=== PATIENT | female | born 1940 | race Caucasian/White ===

== ENCOUNTER 2018-01-05 22:07 | Emergency (ER) | payer MEDICARE, OTHER ==
[2018-01-05] MEDS ORDERED: NS 0.9% 1000 ML* 1,000 ML IV ONE (22:38)
[2018-01-05] MEDS ORDERED: LORazepam INJ* 2 MG/ML 1 ML VIAL IV PUSH ONE (22:57)
[2018-01-05 23:08] LABS: ABS Basophils 0 10^3/ul (0-0.2); ABS Eosinophils 0.3 10^3/ul (0-0.6); ABS Lymphocytes 2.3 10^3/ul (1.0-4.8); ABS Monocytes 0.7 10^3/ul (0-0.8); ABS Neutrophils 3.4 10^3/ul (1.5-7.7); ABS Nucleated RBC 0 10^3/ul; Eosinophil % 3.7 % (0-6); Hematocrit 36 % (35-47); Hemoglobin 11.7 g/dl (12.0-16.0); Lymphocyte % 34.8 % (25-47); Mean Corpuscular HGB Conc 32 g/dl (31-36); Mean Corpuscular Hemoglobin 29 pg (27-31); Mean Corpuscular Volume 89 fL (80-97); Mean Platelet Volume 8.2 um3 (7.4-10.4); Nucleated Red Blood Cells % 0; Platelet Count 303 10^3/ul (150-450); Red Blood Count 4.05 10^6/ul (4.0-5.4); Red Cell Distribution Width 15 % (10.5-15); White Blood Count 6.7 10^3/ul (3.5-10.8)
[2018-01-05 23:19] LABS: EGFR Non-African American 59.6 (>60)
[2018-01-06 01:47] VITALS: BP 167/83
--- NOTE | 2018-01-06 07:39 | RAD ---
INDICATION: Chest pain COMPARISON: None TECHNIQUE: An AP portable view obtained at 2254 hours is submitted. FINDINGS: Bones/Soft Tissues: There are no acute bony findings. Cardiomediastinal: The cardiomediastinal there is mild right paratracheal prominence which is likely related to the thyroid gland. Lungs: There are no infiltrates. Pleura: There are no pleural effusions. Other: None IMPRESSION: NO ACTIVE CARDIOPULMONARY DISEASE.
--- NOTE | 2018-01-06 19:36 | ED ---
Ajay Ray Rebecca, scribed for Roopa Flynn MD on 01/05/18 at 2257 . Complex/Multi-Sys Presentation - HPI Summary HPI Summary: Pt is a 77 y/o F who presents to ED c/o mouth tremors. Sx have been present for 2 days, present only at night. Denies any other symptoms including CP and SOB. Pt reports that she has been taking Xanax for multiple years and suddenly stopped it last week as she ran out and recently moved, so she has been unable to refill the Rx. Last EKG was about 2 years ago. Takes Gabapentin and Effexor. - History Of Current Complaint Chief Complaint: EDGeneral Time Seen by Provider: 01/05/18 22:37 Hx Obtained From: Patient Onset/Duration: Lasting Days - 2 days, Still Present Timing: Intermittent, Lasting: - Only at night Severity Currently: Mild - 11/05 Location: Pain At: - Neck - chronic Associated Signs And Symptoms: Positive: Other - Mouth tremors - Allergies/Home Medications Allergies/Adverse Reactions: Allergies Allergy/AdvReac Type Severity Reaction Status Date / Time iodine Allergy Hives Verified 01/05/18 22:13 Home Medications: Home Medications ALPRAZolam TAB* [Xanax TAB*] 0.5 mg PO BEDTIME PRN 01/05/18 [History Confirmed 01/05/18] Bacillus Coagulans [Ra Probiotic Gummies] 2 chw PO DAILY 01/05/18 [History Confirmed 01/05/18] Biotin 500 mg PO DAILY 01/05/18 [History Confirmed 01/05/18] Gabapentin CAP(*) [Neurontin 400 mg CAP(*)] 400 mg PO QID 01/05/18 [History Confirmed 01/05/18] HYDROcodone/ACETAMIN 5-325 MG* [[place] 5-325 TAB*] 1 tab PO Q4H PRN 01/05/18 [ History Confirmed 01/05/18] Magnesium Oxide [Magnesium] 500 mg PO DAILY 01/05/18 [History Confirmed 01/05/18 ] Multivit-Min/Iron/Folic/Lutein [Centrum Silver Women Tablet] 1 each PO DAILY 06/15 [History Confirmed 01/05/18] Venlafaxine TAB (NF) [Effexor TAB (NF)] 150 mg PO DAILY 01/05/18 [History Confirmed 01/05/18] PMH/Surg Hx/FS Hx/Imm Hx Cardiovascular History: Reports: Other Cardiovascular Problems/Disorders - Hx murmur Denies: Hx Hypertension Musculoskeletal History: Reports: Other Musculoskeletal History - Hx Neck fracture Infectious Disease History: No Infectious Disease History: Denies: Traveled Outside the [place] in Last 30 Days - Family History Known Family History: Negative: Cardiac Disease - Social History Alcohol Use: None Substance Use Type: Reports: None Smoking Status (MU): Never Smoked Tobacco Review of Systems Positive: Other - Mouth tremors Negative: Chest Pain Negative: Shortness Of Breath All Other Systems Reviewed And Are Negative: Yes Physical Exam - Summary Physical Exam Summary: GENERAL: ~Patient is a well developed and nourished F who is lying comfortable in the stretcher. ~Patient is not in any acute respiratory distress. Tremulous. HEAD AND FACE: Normocephalic EYES: PERRLA, EOMI x 2. EARS: Hearing grossly intact. MOUTH: Oropharynx within normal limits. NECK: Supple, trachea is midline, no adenopathy, no JVD, no carotid bruit. CHEST: Symmetric, no tenderness at palpation LUNGS: Clear to auscultation bilaterally. No wheezing or crackles. CVS: Regular rate and rhythm, S1 and S2 present, no murmurs or gallops appreciated. ABDOMEN: Soft, non-tender. Bowel sounds are normal. No abdominal abnormal pulsations. EXTREMITIES: Full ROM in all major joints, no edema, no cyanosis or clubbing. NEURO: Alert and oriented x 3. No acute neurological deficits. Speech is normal and follows commands. SKIN: Dry and warm Triage Information Reviewed: Yes Vital Signs On Initial Exam: Initial Vitals Temp Pulse Resp BP Pulse Ox 97.6 F 66 16 173/84 99 01/05/18 22:10 01/05/18 22:10 01/05/18 22:10 01/05/18 22:10 01/05/18 22:10 Vital Signs Reviewed: Yes Diagnostics - Vital Signs Vital Signs Temp Pulse Resp BP Pulse Ox 01/05/18 22:23 67 18 215/101 99 01/05/18 22:22 68 99 01/05/18 22:10 97.6 F 66 16 173/84 99 - Laboratory Result Diagrams: 01/05/18 22:53 01/05/18 22:53 Lab Statement: Any lab studies that have been ordered have been reviewed, and results considered in the medical decision making process. - Radiology CXR Xray Interpretation: No Acute Changes - No PNA Radiology Interpretation Completed By: ED Physician - EKG 2242 Cardiac Rate: NL - 64 bpm EKG Rhythm: Sinus Rhythm EKG Interpretation: LBBB; ST elevation in V1-V3 but does not meet criteria Complex Multi-Symp Course/Dx Assessment/Plan: Pt is a 77 y/o F who presents to ED c/o mouth shaking for 2 days, present only at night. Has been taking Xanax for multiple years and suddenly stopped it last week as she ran out and recently moved. Her workup is unremarkable including troponin. Pt was given 1 mg of Ativan IV with resolution of shaking. Her EKG did show a LBBB but we have no old EKG to compare it to and pt has no cardiac complaints whatsoever. I did discuss this finding with the pt and instructed her to follow up with a rn immunology for further evaluation. Pt is hemodynamically stable and is safe for D/C with strict return precautions. Pt was given an Rx of 6 Xanax and said that her Rx was mailed from [place] but it normally takes 7-10 days to arrive and she should have it within the next few days. - Diagnoses Provider Diagnoses: Medication refill Discharge - Sign-Out/Discharge Documenting (check all that apply): Discharge/Admit/Transfer - Discharge - Discharge Plan Condition: Stable Disposition: HOME Prescriptions: ALPRAZolam TAB* [Xanax TAB*] 0.5 mg PO BEDTIME 6 Days #6 tab MDD 1 Patient Education Materials: Heart Block (ED), Medicine Refill (ED) Referrals: Noemy Almeida MD [Primary Care Provider] - 3 Days Additional Instructions: RETURN TO ED FOR ANY RETURNING OR WORSENING SYMPTOMS. The documentation as recorded by the Ajay vick Rebecca accurately reflects the service I personally performed and the decisions made by me, Roopa Flynn MD.
== END 2018-01-06 01:48 | disposition home or self-care (01) ==
LOC: ED 22:07
DX: R25.1 Tremor, unspecified (principal); Z76.0 Encounter for issue of repeat prescription; I44.7 Left bundle-branch block, unspecified; R01.1 Cardiac murmur, unspecified
CPT/HCPCS: 36415; 71045; 80053; 82553; 83605; 84484; 85025; 85730; 93005; 96361; 96374; 99283; J2060